=== PATIENT | female | born 1975 | race Hispanic/Latino ===

== ENCOUNTER 2017-12-04 14:13 | Emergency (ER) | payer SELFPAY ==
[2017-12-04 14:56] LABS: Base Excess-Venous -0.3 mmol/L (0 (+/- 2.5)); Bicarbonate (HCO3v) 21.8 mmol/L (1.0-85.0); CO2 Tension (PvCO2) 29.1 mmHg (41.0-51.0); Calcium, Ionized 0.88 mmol/L (1.12-1.32); Hemoglobin - Calc 16.7 g/dL (12.0-18.0); O2 Tension (PvO2) 46.1 mmHg (35.0-45.0); Potassium 4.3 mmol/L (3.4-4.7); T. Carbon Dioxide 22.7 mmol/L (1.0-85.0); pH (Venous) 7.483 (7.35-7.45); vO2 Saturation-calc 85.7 % (94-98)
[2017-12-04 15:24] LABS: #Eosinphils 0.1 thou/uL (0.0-0.7); #Lymphocytes 2.4 thou/uL (1.20-3.40); #Monocytes 0.4 thou/uL (0.11-0.59); #Neutrophils 7.5 thou/uL (1.40-6.50); %Basophils 0.2 % (0.0-1.0); %Lymphocytes 22.8 % (21.0-51.0); %Monocytes 3.7 % (0.0-10.0); %Neutrophils 72.3 % (42.0-75.0); Hemoglobin 14.5 g/dL (12.0-16.0); Mean Corpuscular HGB CONC 33.4 g/dL (32.0-36.0); Mean Corpuscular Hemoglobin 30.7 pg (27.0-31.0); Mean Corpuscular Volume 91.8 fl (81.0-99.0); Mean Platelet Volume 8.3 fL (7.4-10.4); Platelet Count 271 thou/uL (130-400); RBC Distribution Width 11.9 % (11.5-14.5); Red Blood Cell (RBC) Count 4.71 mill/uL (4.20-5.40); White Blood Cell (WBC) Count 10.3 thou/uL (4.8-10.8)
[2017-12-04] MEDS ORDERED: Insulin Regular 300 UNITS/3 ML VIAL ONE (15:27)
[2017-12-04 15:29] LABS: Bilirubin Negative (Negative); Blood, Urine Negative (Negative); Clarity CLEAR (Clear); Glucose, Urine (Dipstick) >=1000 mg/dL (Negative); Leukocyte Negative (Negative); Nitrite Negative (Negative); Protein, Urine (Dipstick) Negative (Neg-Trace); Specific Gravity, Urine 1.039 (1.002-1.036); Urobilinogen 0.2 mg/dL (0.2-1.0)
[2017-12-04 15:49] LABS: ALT (SGPT) 138 U/L (8-55); AST (SGOT) 78 U/L (5-34); Albumin 4.3 g/dL (3.5-5.0); Alkaline Phosphatase 100 U/L (40-150); Anion Gap 15 mmol/L (10-20); BUN (Urea Nitrogen) 13 mg/dL (7.0-18.7); Bilirubin, Total 0.3 mg/dL (0.2-1.2); Calc. Creatinine Clearance 0 mL/min (70-130); Calcium 9.5 mg/dL (7.8-10.44); Carbon Dioxide 23 mmol/L (22-29); Chloride 97 mmol/L (98-107); Estimated GFR-MDRD 59; Globulin 3.8 g/dL (2.4-3.5); Potassium 3.8 mmol/L (3.5-5.1); Protein, Total 8.1 g/dL (6.0-8.3); Sodium 131 mmol/L (136-145)
[2017-12-04 15:56] LABS: Glucose 569 mg/dL (70-105)
[2017-12-04 16:03] LABS: Magnesium 1.9 mg/dL (1.6-2.6); Phosphorus 3.1 mg/dL (2.3-4.7)
== END 2017-12-04 18:00 | disposition home or self-care (01) ==
LOC: ERS 14:13
DX: E11.65 Type 2 diabetes mellitus with hyperglycemia (principal)
CPT/HCPCS: 36415; 36416; 80053; 81003; 82010; 82330; 82803; 83735; 84100; 85025; 96360; 96361; 96372; J1815

== ENCOUNTER 2018-02-04 07:29 | Observation (INO) | payer SELFPAY ==
[2018-02-04] MEDS ORDERED: Fentanyl 100 MCG/2 ML VIAL ONE (08:11)
[2018-02-04 08:19] LABS: #Lymphocytes 1.1 thou/uL (1.20-3.40); #Monocytes 0.3 thou/uL (0.11-0.59); #Neutrophils 6.9 thou/uL (1.40-6.50); %Basophils 0.5 % (0.0-1.0); %Eosinophils 0.4 % (0.0-10.0); %Lymphocytes 12.8 % (21.0-51.0); %Monocytes 3.2 % (0.0-10.0); %Neutrophils 83.2 % (42.0-75.0); Hemoglobin 13.4 g/dL (12.0-16.0); Mean Corpuscular Hemoglobin 29.9 pg (27.0-31.0); Mean Corpuscular Volume 93.6 fL (78.0-98.0); Mean Platelet Volume 7.3 fL (7.4-10.4); Platelet Count 278 thou/uL (130-400); RBC Distribution Width 12.2 % (11.5-14.5); Red Blood Cell (RBC) Count 4.46 mill/uL (4.20-5.40); White Blood Cell (WBC) Count 8.3 thou/uL (4.8-10.8)
[2018-02-04 08:41] LABS: BHCG - Serum Negative (NEGATIVE); Pregs Control Background? CLEAR/WHITE (CLR/WHITE); Pregs Control Bar Appear? YES (CONTROL BAR)
[2018-02-04 08:42] LABS: CKMB 0.5 ng/mL (0-6.6); Troponin I 0.013 ng/mL (< 0.028)
[2018-02-04 08:45] LABS: ALT (SGPT) 45 U/L (8-55); AST (SGOT) 23 U/L (5-34); Albumin 4.4 g/dL (3.5-5.0); Alkaline Phosphatase 73 U/L (40-150); Anion Gap 12 mmol/L (10-20); BUN (Urea Nitrogen) 18 mg/dL (7.0-18.7); Bilirubin, Total 0.3 mg/dL (0.2-1.2); CK (CPK) 88 U/L (29-168); Calc. Creatinine Clearance 0 mL/min (70-130); Calcium 9.4 mg/dL (7.8-10.44); Carbon Dioxide 23 mmol/L (22-29); Chloride 108 mmol/L (98-107); Estimated GFR-MDRD 84; Globulin 3.7 g/dL (2.4-3.5); Glucose 152 mg/dL (70-105); Potassium 4.1 mmol/L (3.5-5.1); Protein, Total 8.1 g/dL (6.0-8.3); Sodium 139 mmol/L (136-145)
--- NOTE | 2018-02-04 09:09 | RAD ---
CHEST ONE VIEW PORTABLE: History: 42-year-old female with history of chest pain radiating to left arm. Comparison: 05-30-09, 08-28-15 FINDINGS: Heart size is normal. The lungs are clear. Stable right hemidiaphragm elevation. IMPRESSION: No acute intrathoracic disease. Stable from prior study. POS: ROBIN
--- NOTE | 2018-02-04 09:48 | CT ---
CTA PULMONARY ANGIOGRAM: History: 42-year-old female with chest pain. Technique: Contrast enhanced CTA of the chest was performed. 2D and 3D reconstructed images performed on an independent 3D workstation. FINDINGS: The thoracic aorta is unremarkable. No evidence of filling defects seen in the pulmonary arteries to suggest pulmonary emboli. No definite evidence of lung parenchymal lesions seen. No evidence of pleural or pericardial effusions seen. No evidence of mediastinal hilar or axillary lymph adenopathy is seen. IMPRESSION: Unremarkable contrast enhanced CTA chest. POS: BRYNN
[2018-02-04] MEDS ORDERED: Lorazepam 2 MG/ML VIAL ONE (10:46)
--- NOTE | 2018-02-04 11:28 | CT ---
HEAD CT WITHOUT CONTRAST: Date: 02/04/18 COMPARISON: None. HISTORY: Left-sided facial paresthesia. TECHNIQUE: Serial axial CT imaging obtained at 5 mm intervals from vertex through skull base without contrast. FINDINGS: Imaged paranasal sinuses and mastoid air cells are well aerated. There is no displaced calvarial frac ture. No intracranial hemorrhage, midline shift, mass effect, or ventricular enlargement. IMPRESSION: No acute findings. POS: ROBIN
[2018-02-04] MEDS ORDERED: Nitroglycerin 2% Ointment 1 INCH/1 GM Packet ONE (11:44)
[2018-02-04 12:48] LABS: Troponin I 0.013 ng/mL (< 0.028)
[2018-02-04] MEDS ORDERED: ISOVUE-370 76%-LOCM 1 ML ONE (13:03)
[2018-02-04 13:39] VITALS: BMI 42.0
[2018-02-04] MEDS ORDERED: Acetaminophen 325 MG TAB PO PRN ×2 (13:47→13:57)
[2018-02-04] MEDS ORDERED: Ondansetron ODT 4 MG TAB SL PRN (13:47)
[2018-02-04] MEDS ORDERED: Ondansetron HCl/PF 4 MG/2 ML Vial IVP PRN ×2 (13:47→13:57)
[2018-02-04] MEDS ORDERED: Senokot 8.6 MG TAB PO PRN (13:57)
[2018-02-04] MEDS ORDERED: Ondansetron ODT 4 MG TAB PO PRN (13:57)
[2018-02-04] MEDS ORDERED: Milk Of Magnesia 30 ML UDCUP PO PRN (13:57)
[2018-02-04] MEDS ORDERED: HumaLOG 300 UNITS/3 ML VIAL SC PRN ×2 (13:57)
[2018-02-04] MEDS ORDERED: Dextrose 50% Abboject 50 ML SYRINGE SLOW IVP PRN (13:57)
[2018-02-04] MEDS ORDERED: Loperamide HCl 2 MG CAP PO PRN (13:57)
[2018-02-04] MEDS ORDERED: Zolpidem Tartrate 5 MG TAB PO PRN (13:57)
[2018-02-04] MEDS ORDERED: Dextrose 5% in Water 1,000 ML IV PRN (13:57)
[2018-02-04] MEDS ORDERED: HYDROcodone/Acetaminophen 5/325 mg Tablet PO PRN (13:57)
[2018-02-04] MEDS ORDERED: Mag-Al 1200 mg/1200 mg/30 ML UDCUP PO PRN (13:57)
[2018-02-04 15:09] LABS: Troponin I 0.016 ng/mL (< 0.028)
--- NOTE | 2018-02-04 15:59 | HP ---
PRIMARY CARE PHYSICIAN: [facility] call admission. REASON FOR ADMISSION: Chest pain. HISTORY OF PRESENT ILLNESS: A 42-year-old female with past medical history of diabetes type 2, morbid obesity, gastroesophageal reflux disease who came to emergency room for evaluation of chest pain. Patient reports that chest pain is a right-sided as well as across the chest, radiating to right arm and she was feeling facial numbness with that. She denies any associated nausea , vomiting, diaphoresis. She denies any relation of chest pain with food, respiration or activity. She denies any NSAID abuse. She denies any melena or hematochezia. She denies any UTI symptoms. Her chest pain description is 6/ 10. There was no specific aggravating or relieving factor. Emergency room treatment did not help her pain. She was continuously complaining of pain since yesterday. She was also feeling numbness around her face, especially on the right side of the face. She denies any facial asymmetry. She denies any speech problems. She denies any motor weakness. She denies any sensory symptoms on the lower extremity or upper extremity other than radiation of pain or chest discomfort on the right arm. In the emergency room, the patient had CT brain which was normal. CT angio was negative. Chest x-ray was normal. Routine blood test was also unremarkable. Patient had negative cardiac enzyme. The patient is planned for admission for observation to rule out acute coronary syndrome. PAST MEDICAL HISTORY: Diabetes type 2, history of ovarian cancer in remission, gastroesophageal reflux disease, morbid obesity. PAST SURGICAL HISTORY: Ovarian tumor removed, hysterectomy. PAST PSYCHIATRIC HISTORY: Reviewed and negative. SOCIAL HISTORY: Patient is . No history of tobacco, alcohol or illicit drug abuse. FAMILY HISTORY: No strong family history of premature coronary artery disease, stroke or cancer. ALLERGIES: No known drug allergy. CURRENT HOME MEDICATIONS: Januvia 100 mg p.o. daily, glipizide 20 mg p.o. daily , Protonix 40 mg p.o. daily, Actos 45 mg p.o. daily. EMERGENCY ROOM COURSE: Patient is given nitroglycerin 1 inch IV fluid 2 liter, Ativan 1 mg, aspirin 324 mg and fentanyl 50 mcg. REVIEW OF SYSTEMS: The following complete review of systems was negative, unless otherwise mentioned in the HPI or below: Constitutional: Weight loss or gain, ability to conduct usual activities. Skin: Rash, itching. Eyes: Double vision, pain. ENT/Mouth: Nose bleeding, neck stiffness, pain, tenderness. Cardiovascular: Palpitations, dyspnea on exertion, orthopnea. Respiratory: Shortness of breath, wheezing, cough, hemoptysis, fever or night sweats. Gastrointestinal: Poor appetite, abdominal pain, heartburn, nausea, vomiting, constipation, or diarrhea. Genitourinary: Urgency, frequency, dysuria, nocturia. Musculoskeletal: Pain, swelling. Neurologic/Psychiatric: Anxiety, depression. Allergy/Immunologic: Skin rash, bleeding tendency. Please see my HPI for pertinent positive and negative. All other review of system reviewed and negative except as mentioned in the HPI. PHYSICAL EXAMINATION: VITAL SIGNS: On arrival, blood pressure 138/75, pulse 102, respiratory rate 24 , temperature 97.5, saturation 95% on room air, weight 117.9 kg. GENERAL: Patient is currently alert, awake, no acute distress. HEAD: Normocephalic, atraumatic. EYES: Pupils round, reactive to light. Extraocular muscle intact. ENT: Oropharynx within normal limits. Moist mucous membranes, no oral lesion, no pharyngeal erythema, no exudate. NECK: Supple, no JVD, no thyromegaly, no carotid bruit, no jugular venous distention. LUNGS: Clear to auscultation without any rhonchi or rales. CARDIAC: S1, S2 regular without any murmur. ABDOMEN: Soft, obesity present. Bowel sounds present, nontender, nondistended. No organomegaly, no mass, no suprapubic tenderness. BACK: Unremarkable, no CVA tenderness. EXTREMITIES: Upper extremity: Passive movements of all joints are normal. Lower extremities: No edema. Good peripheral pulsation, no calf tenderness. SKIN: No skin rash. HEMATOLOGICAL: No lymphadenopathy. PSYCHIATRIC: Normal affect. SIGNIFICANT LABORATORY DATA: EKG showing normal sinus rhythm. Chest x-ray based on my review, no acute cardiopulmonary process. CT brain based on my review, no acute intracranial process. CT angio based on my review, no evidence of pulmonary embolism. CBC: WBC 8.3, hemoglobin 13.4, platelet 278. BMP: Sodium 139, potassium 4.1, chloride 108, carbon dioxide 23, anion gap 12, BUN 18, creatinine 0.76, glucose 152, calcium 9.4. LFT: AST 23, ALT 45, alkaline phosphatase 73, albumin 4.4. Cardiac enzymes negative x3. test negative. ASSESSMENT AND PLAN: 1. Chest pain. Patient's chest pain description is atypical. I am suspecting more towards acid reflux versus anxiety neurosis. Patient has underlying risk factors and that is why we will keep in hospital. We have already excluded acute coronary syndrome to rule out underlying ischemia. We will perform Cardiolite stress test. We will also obtain ultrasound gallbladder to rule out any gallbladder pathology. We will check lipid profile for risk stratification. We will control her pain with [place] and we will also continue Pepcid 20 mg p.o. daily. Meanwhile, we will continue with aspirin 325 mg p.o. daily. 2. Diabetes type 2. Continue Glucotrol 20 mg p.o. daily, Actos 45 mg p.o. daily. Diabetic diet will be given insulin as per sliding scale protocol. 3. Morbid obesity with BMI 42. Weight loss education given. Healthy lifestyle measures discussed with the patient. 4. History of ovarian cancer under remission. 5. Gastroesophageal reflux disease. We are starting Pepcid 20 mg p.o. b.i.d. 6. Deep venous thrombosis prophylaxis not needed because we are expecting discharge in 24 hours. 7. Gastrointestinal prophylaxis, Pepcid 20 mg p.o. b.i.d. 8. Code status: The patient is FULL CODE. Patient's is surrogate decision maker. Disposition plan based on stress test on above-mentioned investigation result, likely within 24 hours. Plan of care discussed with the patient and her at bedside. EFFIED
--- NOTE | 2018-02-04 16:10 | ULT ---
RIGHT UPPER QUADRANT ULTRASOUND: History: Epigastric pain. Date: 02-04-18 Technique: Multiple longitudinal and transverse images of the right quadrant of the abdomen is obtain ed utilizing a curvilinear transducer. Real-time color flow images obtained. In addition, spectral wa veform doppler analysis was used to evaluate the right upper quadrant of the abdomen. FINDINGS: Images demonstrate fibrofatty changes in the liver. No evidence of hepatic parenchymal masses seen. T he liver is moderately enlarged having a midclavicular line measurement of 19.6 cm. The gallbladder i s unremarkable. No evidence of gallstones seen. No evidence of gallbladder wall thickening seen. No e vidence of pericholecystic fluid is seen. The gallbladder wall is of normal thickness measuring 2 mm. No evidence of intrahepatic biliary dilatation is seen. Common bile duct is of normal size measuring 6 mm. The right kidney is unremarkable measuring 11.6 cm from pole to pole. Normal hepatopedal flow is seen in the portal system. IMPRESSION: Some hepatomegaly and fibrofatty changes seen in the liver. Otherwise, unremarkable right upper quadr ant ultrasound. POS: BRYNN
[2018-02-04] MEDS: Famotidine 20 MG TAB PO SCH (19:56)
[2018-02-05 04:44] LABS: Cardiac Risk 5.3 (Less than 4.5)
[2018-02-05] MEDS: glipiZIDE 10 MG TAB PO SCH ×2 (07:50→13:20)
[2018-02-05] MEDS: Famotidine 20 MG TAB PO SCH ×3 (07:50→20:16)
[2018-02-05] MEDS: Pioglitazone HCl 45 MG TAB PO SCH ×2 (07:50→13:21)
[2018-02-05] MEDS: Alogliptin 25 MG TAB PO SCH ×2 (07:50→13:21)
--- NOTE | 2018-02-05 10:24 | PDOC.PN ---
- Subjective Encounter Start Date: 02/05/18 Encounter Start Time: 07:05 -: old records requested/rev Patient seen and examined. No new complaints. No overnight events - Objective Resuscitation Status: Resuscitation Status FULL:Full Resuscitation MAR Reviewed: Yes Vital Signs & Weight: Vital Signs (12 hours) Temp Pulse Resp BP BP Pulse Ox 02/05/18 07:00 97.7 F 70 16 101/54 L 97 02/05/18 04:00 97.5 F L 64 18 98/56 L 95 02/04/18 23:18 97.7 F 71 16 101/62 92 L I&O: 02/04/18 02/05/18 02/06/18 06:59 06:59 06:59 Intake Total 560 Balance 560 Result Diagrams: 02/04/18 08:10 02/04/18 08:10 Additional Labs: Accuchecks 02/05/18 02/04/18 02/04/18 06:40 20:51 16:59 POC Glucose 88 91 102 Radiology Reviewed by me: Yes (us abdomen) EKG Reviewed by me: Yes (nsr) Phys Exam - Physical Examination Constitutional: NAD HEENT: PERRLA, moist MMs, sclera anicteric Neck: no JVD, supple Respiratory: no wheezing, no rales, no rhonchi Cardiovascular: RRR, no significant murmur, no rub Gastrointestinal: soft, non-tender, no distention, positive bowel sounds Musculoskeletal: no edema, pulses present Neurological: non-focal, normal sensation, moves all 4 limbs Psychiatric: normal affect, A&O x 3 Skin: no rash, normal turgor Dx/Plan (1) Chest pain Code(s): R07.9 - CHEST PAIN, UNSPECIFIED Status: Acute (2) Diabetes type 2, controlled Code(s): E11.9 - TYPE 2 DIABETES MELLITUS WITHOUT COMPLICATIONS Status: Chronic (3) Fatty liver disease, nonalcoholic Status: Chronic (4) GERD (gastroesophageal reflux disease) Code(s): K21.9 - GASTRO-ESOPHAGEAL REFLUX DISEASE WITHOUT ESOPHAGITIS Status: Chronic (5) Morbid obesity with BMI of 40.0-44.9, adult Code(s): E66.01 - MORBID (SEVERE) OBESITY DUE TO EXCESS CALORIES; Z68.41 - BODY MASS INDEX (BMI) 40.0-44.9, ADULT Status: Chronic - Plan cont current plan of care, plan discussed w/ family * if stress test is negative, will discharge later today * medication reviewed as below * symptomatic treatment. Review of Systems - Review of Systems Eyes: negative: Pain, Vision Change, Conjunctivae Inflammation, Eyelid Inflammation, Redness, Other ENT: negative: Ear Pain, Ear Discharge, Nose Pain, Nose Discharge, Nose Congestion, Mouth Pain, Mouth Swelling, Throat Pain, Throat Swelling, Other Respiratory: negative: Cough, Dry, Shortness of Breath, Hemoptysis, SOB with Excertion, Pleuritic Pain, Sputum, Wheezing Cardiovascular: negative: chest pain, palpitations, orthopnea, paroxysmal nocturnal dyspnea, edema, light headedness, other Gastrointestinal: negative: Nausea, Vomiting, Abdominal Pain, Diarrhea, Constipation, Melena, Hematochezia, Other Genitourinary: negative: Dysuria, Frequency, Incontinence, Hematuria, Retention , Other Musculoskeletal: negative: Neck Pain, Shoulder Pain, Arm Pain, Back Pain, Hand Pain, Leg Pain, Foot Pain, Other - Medications/Allergies Allergies/Adverse Reactions: Allergies Allergy/AdvReac Type Severity Reaction Status Date / Time No Known Allergies Allergy Verified 08/28/15 03:26 Medications: Current Medications Acetaminophen (Tylenol) 650 mg PO Q4H PRN PRN Reason: Headache/Fever or Pain Last Admin: 02/04/18 19:58 Dose: 650 mg Hydrocodone Bitart/Acetaminophen ([place] 5/325) 1 tab PO Q4H PRN PRN Reason: Moderate Pain (4-6) Al Hydroxide/Mg Hydroxide (Maalox) 30 ml PO Q6H PRN PRN Reason: Heartburn or Indigestion Alogliptin Benzoate (Alogliptin) 25 mg PO DAILY [facility] Last Admin: 02/05/18 07:50 Dose: Not Given Aspirin (Aspirin) 325 mg PO DAILY [facility] Dextrose/Water (Dextrose 50%) 25 gm SLOW IVP PRN PRN PRN Reason: Hypoglycemia Famotidine (Pepcid) 20 mg PO BID [facility] Last Admin: 02/05/18 07:50 Dose: Not Given Glipizide (Glucotrol) 20 mg PO DAILY [facility] Last Admin: 02/05/18 07:50 Dose: Not Given Glucagon (Glucagon) 1 mg IM PRN PRN PRN Reason: Hypoglycemia Dextrose/Water (D5w) 1,000 mls @ 0 mls/hr IV .Q0M PRN; As Directed PRN Reason: Hypoglycemia Insulin Human Lispro (Humalog) 0 units SC .MODERATE SLIDING SC PRN PRN Reason: Moderate Correctional Scale Insulin Human Lispro (Humalog) 0 units SC .BEDTIME SLIDING SC PRN PRN Reason: Bedtime Correctional Scale Loperamide HCl (Imodium) 2 mg PO PRN PRN PRN Reason: Diarrhea/Loose Stools Magnesium Hydroxide (Milk Of Magnesium) 30 ml PO DAILYPRN PRN PRN Reason: Constipation Ondansetron HCl (Zofran Odt) 4 mg PO Q6H PRN PRN Reason: Nausea/Vomiting Ondansetron HCl (Zofran) 4 mg IVP Q6H PRN PRN Reason: Nausea/Vomiting Pioglitazone HCl (Actos) 45 mg PO DAILY [facility] Last Admin: 02/05/18 07:50 Dose: Not Given Senna (Senokot) 2 tab PO HSPRN PRN PRN Reason: Constipation Sodium Chloride (Flush - Normal Saline) 10 ml IVF Q12HR [facility] Last Admin: 02/04/18 19:56 Dose: 10 ml Sodium Chloride (Flush - Normal Saline) 10 ml IVF PRN PRN PRN Reason: Saline Flush Zolpidem Tartrate (Ambien) 5 mg PO HSPRN PRN PRN Reason: Insomnia
--- NOTE | 2018-02-05 11:38 | DIS ---
DATE OF ADMISSION: 02/04/2018 DATE OF DISCHARGE: 02/05/2018 PRIMARY CARE PHYSICIAN: Michael De La Paz M.D. DISCHARGE DISPOSITION: Home. PRIMARY DISCHARGE DIAGNOSIS: Chest pain, ruled out acute coronary syndrome, likely due to gastroesophageal reflux disease. SECONDARY DISCHARGE DIAGNOSES: Diabetes type 2, fatty liver disease, gastroesophageal reflux disease, and morbid obesity with body mass index 42. PRIMARY PROCEDURE/OPERATION: None. RADIOLOGICAL INVESTIGATION: Chest x-ray normal. CT angio negative for PE. CT brain negative for any acute intracranial process. Abdomen ultrasound showed fatty liver changes. Stress test result is pending by the time of dictation. SIGNIFICANT LABORATORY DATA: WBC 8.3, hemoglobin 13.4, platelet 278, LDL 122. Cardiac enzymes negative. Sodium 139, creatinine 0.76. LFT normal. DISCHARGE MEDICATIONS: Glipizide 20 mg p.o. daily, Protonix 40 mg p.o. daily, Actos 45 mg p.o. daily, and Januvia 100 mg p.o. daily. CONTRAINDICATIONS: None. CODE STATUS: FULL CODE. INPATIENT CONSULTANTS: None. ALLERGIES: No known drug allergy. DISCHARGE PLAN: Post hospital, patient will follow up with primary care physician in 1 week. HOSPITAL COURSE: A 42-year-old female who was admitted by me. Please see my HPI for further detail. She was admitted for chest pain. Her chest pain description was atypical. In the emergency room, she had chest x-ray which was normal. Electrocardiogram was unremarkable. CT angiography was negative for PE. CT brain was also negative which was done because she was complaining of facial paraesthesia as patient was complaining of lower chest pain, that is why we did an ultrasound which was also normal other than fibrofatty changes in the liver. Because of risk factors, we did a stress test while in hospital. Official report of stress test is pending. If stress test is negative, then we will consider discharging her home later on today. The patient is seen and examined at bedside today. Please see my progress note from today for further detail. stress test is normal MTDD
[2018-02-05] MEDS: Aspirin 325 MG TAB PO SCH (13:21)
--- NOTE | 2018-02-06 09:50 | PDOC.PN ---
- Subjective Encounter Start Date: 02/06/18 Encounter Start Time: 07:05 Patient seen and examined. No new complaints. No overnight events - Objective Resuscitation Status: Resuscitation Status FULL:Full Resuscitation MAR Reviewed: Yes Vital Signs & Weight: Vital Signs (12 hours) Temp Pulse Resp BP Pulse Ox 02/06/18 07:43 98.2 F 87 16 02/06/18 07:00 98.2 F 87 16 104/55 L 95 02/06/18 03:07 98.7 F 83 16 110/71 95 02/05/18 23:15 98.0 F 73 15 108/69 94 L Weight Weight 266 lb 14.4 oz I&O: 02/05/18 02/06/18 02/07/18 06:59 06:59 06:59 Intake Total 560 1550 Balance 560 1550 Result Diagrams: 02/04/18 08:10 02/04/18 08:10 Additional Labs: Accuchecks 02/06/18 02/05/18 02/05/18 05:48 23:20 20:48 POC Glucose 91 87 74 02/05/18 02/05/18 02/05/18 17:33 16:57 13:18 POC Glucose 73 67 L 164 H EKG Reviewed by me: Yes (nsr) Phys Exam - Physical Examination Constitutional: NAD HEENT: PERRLA, moist MMs, sclera anicteric Neck: no JVD, supple Respiratory: no wheezing, no rales, no rhonchi Cardiovascular: RRR, no significant murmur, no rub Gastrointestinal: soft, non-tender, no distention, positive bowel sounds Musculoskeletal: no edema, pulses present Neurological: non-focal, normal sensation, moves all 4 limbs Psychiatric: normal affect, A&O x 3 Skin: no rash, normal turgor Dx/Plan (1) Chest pain Code(s): R07.9 - CHEST PAIN, UNSPECIFIED Status: Acute (2) Diabetes type 2, controlled Code(s): E11.9 - TYPE 2 DIABETES MELLITUS WITHOUT COMPLICATIONS Status: Chronic (3) Fatty liver disease, nonalcoholic Status: Chronic (4) GERD (gastroesophageal reflux disease) Code(s): K21.9 - GASTRO-ESOPHAGEAL REFLUX DISEASE WITHOUT ESOPHAGITIS Status: Chronic (5) Morbid obesity with BMI of 40.0-44.9, adult Code(s): E66.01 - MORBID (SEVERE) OBESITY DUE TO EXCESS CALORIES; Z68.41 - BODY MASS INDEX (BMI) 40.0-44.9, ADULT Status: Chronic - Plan cont current plan of care * . Review of Systems - Review of Systems ENT: negative: Ear Pain, Ear Discharge, Nose Pain, Nose Discharge, Nose Congestion, Mouth Pain, Mouth Swelling, Throat Pain, Throat Swelling, Other Respiratory: negative: Cough, Dry, Shortness of Breath, Hemoptysis, SOB with Excertion, Pleuritic Pain, Sputum, Wheezing Cardiovascular: negative: chest pain, palpitations, orthopnea, paroxysmal nocturnal dyspnea, edema, light headedness, other Gastrointestinal: negative: Nausea, Vomiting, Abdominal Pain, Diarrhea, Constipation, Melena, Hematochezia, Other Genitourinary: negative: Dysuria, Frequency, Incontinence, Hematuria, Retention , Other Musculoskeletal: negative: Neck Pain, Shoulder Pain, Arm Pain, Back Pain, Hand Pain, Leg Pain, Foot Pain, Other Skin: negative: Rash, Lesions, Javy, Bruising, Other - Medications/Allergies Allergies/Adverse Reactions: Allergies Allergy/AdvReac Type Severity Reaction Status Date / Time No Known Allergies Allergy Verified 08/28/15 03:26 Medications: Current Medications Acetaminophen (Tylenol) 650 mg PO Q4H PRN PRN Reason: Headache/Fever or Pain Last Admin: 02/04/18 19:58 Dose: 650 mg Hydrocodone Bitart/Acetaminophen ([place] 5/325) 1 tab PO Q4H PRN PRN Reason: Moderate Pain (4-6) Al Hydroxide/Mg Hydroxide (Maalox) 30 ml PO Q6H PRN PRN Reason: Heartburn or Indigestion Alogliptin Benzoate (Alogliptin) 25 mg PO DAILY [facility] Last Admin: 02/05/18 13:21 Dose: 25 mg Aspirin (Aspirin) 325 mg PO DAILY [facility] Last Admin: 02/05/18 13:21 Dose: 325 mg Dextrose/Water (Dextrose 50%) 25 gm SLOW IVP PRN PRN PRN Reason: Hypoglycemia Famotidine (Pepcid) 20 mg PO BID [facility] Last Admin: 02/05/18 20:16 Dose: 20 mg Glipizide (Glucotrol) 20 mg PO DAILY [facility] Last Admin: 02/05/18 13:20 Dose: 20 mg Glucagon (Glucagon) 1 mg IM PRN PRN PRN Reason: Hypoglycemia Dextrose/Water (D5w) 1,000 mls @ 0 mls/hr IV .Q0M PRN; As Directed PRN Reason: Hypoglycemia Insulin Human Lispro (Humalog) 0 units SC .MODERATE SLIDING SC PRN PRN Reason: Moderate Correctional Scale Insulin Human Lispro (Humalog) 0 units SC .BEDTIME SLIDING SC PRN PRN Reason: Bedtime Correctional Scale Loperamide HCl (Imodium) 2 mg PO PRN PRN PRN Reason: Diarrhea/Loose Stools Magnesium Hydroxide (Milk Of Magnesium) 30 ml PO DAILYPRN PRN PRN Reason: Constipation Ondansetron HCl (Zofran Odt) 4 mg PO Q6H PRN PRN Reason: Nausea/Vomiting Ondansetron HCl (Zofran) 4 mg IVP Q6H PRN PRN Reason: Nausea/Vomiting Pioglitazone HCl (Actos) 45 mg PO DAILY [facility] Last Admin: 02/05/18 13:21 Dose: 45 mg Senna (Senokot) 2 tab PO HSPRN PRN PRN Reason: Constipation Sodium Chloride (Flush - Normal Saline) 10 ml IVF Q12HR [facility] Last Admin: 02/05/18 20:18 Dose: 10 ml Sodium Chloride (Flush - Normal Saline) 10 ml IVF PRN PRN PRN Reason: Saline Flush Zolpidem Tartrate (Ambien) 5 mg PO HSPRN PRN PRN Reason: Insomnia
[2018-02-06] MEDS: Famotidine 20 MG TAB PO SCH (11:06)
[2018-02-06] MEDS: glipiZIDE 10 MG TAB PO SCH (11:06)
[2018-02-06] MEDS: Alogliptin 25 MG TAB PO SCH (11:06)
[2018-02-06] MEDS: Aspirin 325 MG TAB PO SCH (11:06)
[2018-02-06] MEDS: Pioglitazone HCl 45 MG TAB PO SCH (11:07)
[2018-02-06 11:40] VITALS: BP 133/91; TEMP 97.9
--- NOTE | 2018-02-06 12:35 | NM ---
NUCLEAR MEDICINE CARDIAC PERFUSION EXAMINATION WITH EJECTION FRACTION: HISTORY: A 42-year-old female with chest pain and diabetes. TECHNIQUE: A stress-only nuclear medicine cardiac perfusion examination was performed. 31 mCi of Technetium 99m sestamibi were given at the peak of exercise on a treadmill using a Ramesh protocol. The patient ach ieved 95% maximum-intensity heart rate. FINDINGS: Tomographic images showed no perfusion defects with stress. Gated images show normal wall motion wit h an ejection fraction of 67%. EDV is 129 mL. LHR is 0.5. IMPRESSION: No perfusion defect is seen with stress. POS: BRYNN
--- NOTE | 2018-02-06 15:50 | ADD-DIS ---
ADDENDUM This patient stayed extra day in the hospital because stress test was done in 2 days protocol. Today we have stress test result and that is completely normal. There was no overnight event happened and her monitor tech remained normal. We are prescribing Protonix for her acid reflux which we are suspecting etiology of her chest pain. The patient is seen and examined at bedside today. Please s ee my progress note from today for further detail.
== END 2018-02-06 13:37 | disposition home or self-care (01) ==
LOC: ERS 07:29 → 2SW 13:23
PROVIDERS: ADMIT Internal Medicine; ATTEND Internal Medicine
DX: R07.89 Other chest pain (principal); E11.9 Type 2 diabetes mellitus without complications; K21.9 Gastro-esophageal reflux disease without esophagitis; K76.0 Fatty (change of) liver, not elsewhere classified; E66.01 Morbid (severe) obesity due to excess calories; Z68.41 Body mass index [BMI] 40.0-44.9, adult; Z85.43 Personal history of malignant neoplasm of ovary; Z79.84 Long term (current) use of oral hypoglycemic drugs; Z79.899 Other long term (current) drug therapy
CPT/HCPCS: 36415; 36416; 70450; 71045; 71275; 76705; 78452; 80053; 80061; 82550; 82553; 84484; 84703; 85025; 93005; 93017; 96361; 96374; 96375; A4216; A9500; G0378; J2060; J3010

== ENCOUNTER 2018-02-25 23:45 | Emergency (ER) | payer SELFPAY ==
[2018-02-26] MEDS ORDERED: Lorazepam 1 MG TAB ONE (00:39)
[2018-02-26] MEDS ORDERED: diphenhydrAMINE 25 MG CAP ONE (01:30)
[2018-02-26] MEDS ORDERED: diphenhydrAMINE 50 MG CAP ONE (01:30)
--- NOTE | 2018-02-26 07:52 | RAD ---
SINGLE VIEW CHEST: Date: 02/25/18 COMPARISON: 02/04/18. HISTORY: Anxiety attack with chest pain and epigastric abdominal pain. FINDINGS: Single view of the chest shows a normal sized cardiomediastinal silhouette. There is no evidence of c onsolidation, mass, or pleural effusion. The bones are unremarkable. IMPRESSION: No evidence of acute cardiopulmonary disease. POS: [facility]
== END 2018-02-26 02:15 | disposition home or self-care (01) ==
LOC: ERS 23:45
DX: F41.9 Anxiety disorder, unspecified (principal); E11.9 Type 2 diabetes mellitus without complications; Z79.899 Other long term (current) drug therapy
CPT/HCPCS: 36416; 71045; 93005